=== PATIENT | male | born 1935 | race Caucasian/White ===

== ENCOUNTER 2020-07-04 23:24 | Emergency (ER) | payer MEDICARE ==
[~2020-07-04] VITALS: Ht 182.9 cm; Wt 95.3 kg
[2020-07-04 23:42] VITALS: BP 152/85
--- NOTE | 2020-07-04 23:44 | NUR ---
DR GUILLEN AT [facility] SIDE
[2020-07-04] MEDS ORDERED: SULF1TAB48 PO (23:50)
[2020-07-04] MEDS ORDERED: CEPH500C2 PO (23:50)
--- NOTE | 2020-07-04 23:59 | NUR ---
PT is medically stable for d/c. Patient discharged to home in stable condition. Rx and Written and verbal after care instructions given. Patient verbalizes understanding of instruction.
== END 2020-07-05 | disposition home or self-care (01) ==
LOC: ER 23:33
DX: L03.115 Cellulitis of right lower limb (principal); I10 Essential (primary) hypertension; E78.00 Pure hypercholesterolemia, unspecified